=== PATIENT | female | born 1945 | race African-American/Black ===

== ENCOUNTER 2020-07-10 05:42 | Day surgery (SDC) | payer MEDICARE ==
[~2020-07-10 05:42] MED LIST: ASPIRIN CHEWABL81 MG PO; CARTIA XT240 MG PO; CLOPIDOGREL75 MG PO; COQ1050 MG PO; FARXIGA5 MG PO; HUMULIN R100 UNIT/1 SC; K-DUR20 MEQ PO; LIPITOR40 MG PO; LOSARTAN-HCTZ1 EAC1 PO; PLAVIX75 MG PO; SERTRALINE HCL50 MG PO; TOPROL XL 50 MG50 MG PO; VICTOZA 3-0.6 MG/0.1 SC
[2020-07-10 07:08] LABS: BUN/CREAT RATIO (CALC) 31.1 RATIO; CREATININE 0.74 mg/dL (0.51-0.95); POTASSIUM 3.4 mmol/L (3.5-5.1)
[2020-07-10] MEDS ORDERED: PERCOCET 5-3251 EACH PO (12:48)
[2020-07-11 05:51] LABS: BASOPHIL 0.3 % (0-2); EOSINOPHIL 0.4 % (0-7); HGB 9.7 g/dl (12.5-16.0); LYMPHOCYTE 19.1 % (15-48); MCH 23.4 pg (25.0-31.0); MCHC 31.3 g/dL (32.0-36.0); MCV 74.7 fL (78.0-100.0); MONOCYTE 10.7 % (0-12); MPV 12.2 fL (6.0-9.5); NEUTROPHIL 69.3 % (41-80); NRBC 0; PLT 204 K/uL (150-400); RBC 4.15 M/uL (4.20-5.40); RDW 16.1 % (11.5-14.0); WBC 9.3 K/uL (4.0-10.5)
[2020-07-11 06:18] LABS: CREATININE 0.84 mg/dL (0.51-0.95); POTASSIUM 3.5 mmol/L (3.5-5.1)
[2020-07-11] MEDS ORDERED: OXYCODONE-ACET1 EAC1 PO (11:59)
[2020-07-11] MEDS ORDERED: FEOSOL325 MG PO (11:59)
[2020-07-11] MEDS ORDERED: XARELTO10 MG PO (11:59)
--- NOTE | 2020-07-11 14:36 | NUR ---
PT. TO D/C TO [facility] THIS DATE. ADVISED DAVID SIMONS.
[2020-10-05] MEDS ORDERED: ASPIRIN EC81 MG PO (15:38)
[2020-10-16] MEDS ORDERED: NORCO 5-325 TA1 EACH PO (12:45)
== END 2020-07-11 15:51 ==
LOC: FAS 05:42 → FMS 05:42 → FAS 11:30
PROVIDERS: Anesthesiology; Legal Medicine
DX: M17.12 Unilateral primary osteoarthritis, left knee (principal); I10 Essential (primary) hypertension; I25.810 Atherosclerosis of coronary artery bypass graft(s) without angina pectoris; I11.0 Hypertensive heart disease with heart failure; I50.9 Heart failure, unspecified; E11.9 Type 2 diabetes mellitus without complications; E78.5 Hyperlipidemia, unspecified; G47.33 Obstructive sleep apnea (adult) (pediatric); Z99.81 Dependence on supplemental oxygen; Z88.8 Allergy status to other drugs, medicaments and biological substances; Z90.710 Acquired absence of both cervix and uterus; Z79.899 Other long term (current) drug therapy; Z98.890 Other specified postprocedural states; Z79.4 Long term (current) use of insulin
CPT/HCPCS: 36415; 73560; 80048; 82962; 85025; 86850; 86900; 86901; 94010; 94760; 94762; 97110; 97116; 97162; 97166; 97530-GP; 97535; C1713; C1776; J0171; J0697; J1170; J1885; J2250; J2270; J2704; J2795; J3010; J7120

== ENCOUNTER → 2020-10-16 | Day surgery (SDC) | payer OTHER ==
--- NOTE | 2020-10-09 12:29 | NUR ---
PT PROCEDURE CANCELED PER DR NÚÑEZ, WILL RESCHEDULE WHEN PT IS OFF OF [facility] FOR RECOMMENDED TIME
[~2020-10-16] VITALS: Ht 157.5 cm; Wt 72.6 kg
[~2020-10-16] MED LIST changes: +ASPIRIN EC81 MG PO; +FEOSOL325 MG PO; +NORCO 5-325 TA1 EACH PO; +OXYCODONE-ACET1 EAC1 PO; +PERCOCET 5-3251 EACH PO; +XARELTO10 MG PO
[2020-10-16 07:13] LABS: BUN/CREAT RATIO (CALC) 19.1 RATIO; CREATININE 0.89 mg/dL (0.51-0.95); POTASSIUM 3.4 mmol/L (3.5-5.1)
== END | disposition home or self-care (01) ==
LOC: FAS 10-09 11:18
PROVIDERS: Anesthesiology
DX: T84.82XA Fibrosis due to internal orthopedic prosthetic devices, implants and grafts, initial encounter (principal); Z96.652 Presence of left artificial knee joint; Z95.5 Presence of coronary angioplasty implant and graft; Z90.710 Acquired absence of both cervix and uterus; Z88.8 Allergy status to other drugs, medicaments and biological substances; M54.5 Low back pain; I10 Essential (primary) hypertension; I25.10 Atherosclerotic heart disease of native coronary artery without angina pectoris; F32.9 Major depressive disorder, single episode, unspecified
CPT/HCPCS: 36415; 80048; 97162; 97530-GP; J2250; J2704; J2795; J3010; J7120

== ENCOUNTER 2021-06-28 10:32 | Emergency (ER) | payer OTHER ==
[2021-06-28 11:23] LABS: BASOPHIL 0.5 % (0-2); EOSINOPHIL 0.9 % (0-7); HCT 41.7 % (37.0-47.0); LYMPHOCYTE 27.1 % (15-48); MCH 23.2 pg (25.0-31.0); MCHC 31.2 g/dL (32.0-36.0); MCV 74.5 fL (78.0-100.0); MONOCYTE 8.3 % (0-12); MPV 11.4 fL (6.0-9.5); NEUTROPHIL 62.9 % (41-80); NRBC 0; PLT 259 K/uL (150-400); WBC 7.6 K/uL (4.0-10.5)
[2021-06-28 11:38] LABS: BILIRUBIN NEGATIVE (NEGATIVE); BLOOD NEGATIVE Ery/uL (NEGATIVE); CLARITY CLEAR (CLEAR); COLOR YELLOW (YELLOW); GLUCOSE (U) 3+ mg/dL (NORMAL); LEUKOCYTES NEGATIVE Leu/uL (NEGATIVE); NITRITE NEGATIVE (NEGATIVE); PROTEIN NEGATIVE (NEGATIVE)
[2021-06-28 11:38] LABS: ALBUMIN 3.8 g/dL (3.4-5.0); BILIRUBIN - TOTAL 0.4 mg/dL (0.2-1.0); BUN/CREAT RATIO (CALC) 17.1 RATIO; CREATININE 0.76 mg/dL (0.51-0.95); GLOBULIN (CALCULATION) 3.9 g/dL; POTASSIUM 3.2 mmol/L (3.5-5.1); TOTAL PROTEIN 7.7 g/dL (6.4-8.2)
== END 2021-06-28 13:27 | disposition home or self-care (01) ==
LOC: FER 10:32
PROVIDERS: Emergency Medicine
DX: R10.84 Generalized abdominal pain (principal); E11.9 Type 2 diabetes mellitus without complications; I10 Essential (primary) hypertension
CPT/HCPCS: 36415; 80053; 81003; 83690; 85025; 99284

== ENCOUNTER 2021-07-01 10:31 | Day surgery (SDCO) | payer OTHER ==
[~2021-07-01] VITALS: Ht 157.5 cm; Wt 79.1 kg
[2021-07-01 11:15] LABS: BASOPHIL 0.5 % (0-2); EOSINOPHIL 1.2 % (0-7); HCT 42.2 % (37.0-47.0); HGB 13.2 g/dl (12.5-16.0); MCH 23.1 pg (25.0-31.0); MCHC 31.3 g/dL (32.0-36.0); MCV 73.9 fL (78.0-100.0); MPV 11.6 fL (6.0-9.5); NEUTROPHIL 69.9 % (41-80); NRBC 0; PLT 273 K/uL (150-400); RBC 5.71 M/uL (4.20-5.40); WBC 8.5 K/uL (4.0-10.5)
[2021-07-01 11:27] LABS: INR 1.11 (0.9-1.2); PROTHROMBIN TIME 13.7 SECONDS (11.8-13.4); PTT 31.8 SECONDS (24.4-34.7)
[2021-07-01 11:28] LABS: D-DIMER 0.76 ug/mLFEU (0.00-0.41)
[2021-07-01 11:35] LABS: ALBUMIN 3.7 g/dL (3.4-5.0); BILIRUBIN - TOTAL 0.5 mg/dL (0.2-1.0); BUN/CREAT RATIO (CALC) 16.7 RATIO; CREATININE 0.78 mg/dL (0.51-0.95); GLOBULIN (CALCULATION) 3.9 g/dL; TOTAL PROTEIN 7.6 g/dL (6.4-8.2)
[2021-07-01] MEDS ORDERED: DILTIAZEM 24HR300 M1 PO (16:58)
[2021-07-02 06:34] LABS: BASOPHIL 0.5 % (0-2); EOSINOPHIL 0.8 % (0-7); HCT 40.3 % (37.0-47.0); HGB 12.4 g/dl (12.5-16.0); LYMPHOCYTE 28.5 % (15-48); MCH 22.8 pg (25.0-31.0); MCHC 30.8 g/dL (32.0-36.0); MCV 74.1 fL (78.0-100.0); MONOCYTE 7.8 % (0-12); NEUTROPHIL 62.1 % (41-80); NRBC 0; PLT 244 K/uL (150-400); RBC 5.44 M/uL (4.20-5.40); RDW 15.9 % (11.5-14.0); WBC 7.5 K/uL (4.0-10.5)
[2021-07-02 06:56] LABS: ALBUMIN 3.3 g/dL (3.4-5.0); BILIRUBIN - TOTAL 0.7 mg/dL (0.2-1.0); BUN/CREAT RATIO (CALC) 12.3 RATIO; CREATININE 0.81 mg/dL (0.51-0.95); GLOBULIN (CALCULATION) 3.5 g/dL; POTASSIUM 3.3 mmol/L (3.5-5.1); TOTAL PROTEIN 6.8 g/dL (6.4-8.2)
[2021-07-02] MEDS ORDERED: PROTONIX 40MG T40 MG PO (11:34)
[2021-07-02] MEDS ORDERED: CARAFATE1 GM PO (11:34)
--- NOTE | 2021-07-02 15:48 | NUR ---
PT D/C TO HOME LEFT AT 12:45 WITH FAMILY. IV AND TELY REMOVED. PT LEFT IN GOOD CONDITION. DC PAPER GONE OVER WITH PATIENT. WITH UNDERSTANDING
== END 2021-07-02 12:45 | disposition home or self-care (01) ==
LOC: FER 10:31 → FMS 14:04
PROVIDERS: Emergency Medicine; ADMIT Allergy & Immunology Allergy
DX: R07.2 Precordial pain (principal); I10 Essential (primary) hypertension; I25.10 Atherosclerotic heart disease of native coronary artery without angina pectoris; E78.5 Hyperlipidemia, unspecified; G47.30 Sleep apnea, unspecified; M54.9 Dorsalgia, unspecified; M81.0 Age-related osteoporosis without current pathological fracture; E11.51 Type 2 diabetes mellitus with diabetic peripheral angiopathy without gangrene; K21.9 Gastro-esophageal reflux disease without esophagitis; K58.9 Irritable bowel syndrome, unspecified; R74.8 Abnormal levels of other serum enzymes; G89.29 Other chronic pain; F32.A Depression, unspecified; Z90.710 Acquired absence of both cervix and uterus; Z88.8 Allergy status to other drugs, medicaments and biological substances; Z95.5 Presence of coronary angioplasty implant and graft; Z91.041 Radiographic dye allergy status; Z79.01 Long term (current) use of anticoagulants; Z79.82 Long term (current) use of aspirin; Z79.4 Long term (current) use of insulin; Z96.652 Presence of left artificial knee joint; Z20.822 Contact with and (suspected) exposure to COVID-19
CPT/HCPCS: 36415; 71045; 76705; 80053; 83690; 83735; 83880; 84443; 84484; 85025; 85379; 85610; 85730; 93005; C9113; G0378; U0002

== ENCOUNTER → 2021-08-15 | Day surgery (SDC) | payer OTHER ==
[~2021-08-15] VITALS: Ht 157.5 cm; Wt 75.9 kg
[~2021-08-15] MED LIST changes: +ARTHRITIS PAIN150 GM TOP; +CALCIUM + VITA1 EACH PO; +CARAFATE1 GM PO; +DILTIAZEM 24HR300 M1 PO; +ESCITALOPRAM OX10 MG PO; +GAS RELIEF80 MG PO; +PROTONIX 40MG T40 MG PO; +RESTASIS1 EACH OU; +TRESIBA FL100 UNIT/1 SC
== END | disposition home or self-care (01) ==
LOC: FAS 10:53
DX: R10.32 Left lower quadrant pain (principal); R10.31 Right lower quadrant pain; K29.50 Unspecified chronic gastritis without bleeding; B96.81 Helicobacter pylori [H. pylori] as the cause of diseases classified elsewhere; K31.A11 Gastric intestinal metaplasia without dysplasia, involving the antrum; K21.00 Gastro-esophageal reflux disease with esophagitis, without bleeding; R07.89 Other chest pain; K44.9 Diaphragmatic hernia without obstruction or gangrene; K63.89 Other specified diseases of intestine; R74.8 Abnormal levels of other serum enzymes; I25.10 Atherosclerotic heart disease of native coronary artery without angina pectoris; E11.9 Type 2 diabetes mellitus without complications; I10 Essential (primary) hypertension; E66.9 Obesity, unspecified; E78.00 Pure hypercholesterolemia, unspecified; M19.90 Unspecified osteoarthritis, unspecified site; Z95.5 Presence of coronary angioplasty implant and graft; Z79.02 Long term (current) use of antithrombotics/antiplatelets; Z79.82 Long term (current) use of aspirin; Z96.659 Presence of unspecified artificial knee joint
CPT/HCPCS: 88305; 88342; J2704; J7120

== ENCOUNTER 2021-11-02 17:49 | Emergency (ER) | payer OTHER ==
[2021-11-02 19:43] LABS: BILIRUBIN NEGATIVE (NEGATIVE); BLOOD NEGATIVE Ery/uL (NEGATIVE); CLARITY CLEAR (CLEAR); COLOR YELLOW (YELLOW); GLUCOSE (U) 3+ mg/dL (NORMAL); LEUKOCYTES NEGATIVE Leu/uL (NEGATIVE); NITRITE NEGATIVE (NEGATIVE); PROTEIN NEGATIVE (NEGATIVE); SPECIFIC GRAVITY <=1.005 (1.001-1.030); UROBILINOGEN 0.2 mg/dL (0.2-1.0)
[2021-11-02 19:43] LABS: BASOPHIL 0.3 % (0-2); EOSINOPHIL 0.3 % (0-7); HCT 39.6 % (37.0-47.0); HGB 12.7 g/dl (12.5-16.0); LYMPHOCYTE 14.2 % (15-48); MCH 23.6 pg (25.0-31.0); MCHC 32.1 g/dL (32.0-36.0); MCV 73.7 fL (78.0-100.0); MONOCYTE 5.4 % (0-12); MPV 11.9 fL (6.0-9.5); NEUTROPHIL 79.5 % (41-80); NRBC 0; PLT 235 K/uL (150-400); RBC 5.37 M/uL (4.20-5.40); RDW 15.9 % (11.5-14.0); WBC 12.2 K/uL (4.0-10.5)
[2021-11-02 19:55] LABS: ALBUMIN 3.5 g/dL (3.4-5.0); BILIRUBIN - TOTAL 0.3 mg/dL (0.2-1.0); CREATININE 0.84 mg/dL (0.51-0.95); GLOBULIN (CALCULATION) 3.7 g/dL; POTASSIUM 3.2 mmol/L (3.5-5.1); TOTAL PROTEIN 7.2 g/dL (6.4-8.2)
== END 2021-11-02 21:55 | disposition home or self-care (01) ==
LOC: FER 17:49
PROVIDERS: Internal Medicine
DX: E11.65 Type 2 diabetes mellitus with hyperglycemia (principal); E87.6 Hypokalemia; I10 Essential (primary) hypertension; Z88.8 Allergy status to other drugs, medicaments and biological substances; Z79.4 Long term (current) use of insulin; Z79.899 Other long term (current) drug therapy
CPT/HCPCS: 36415; 73060; 73502; 80053; 81003; 85025; J7030